=== PATIENT | male | born 1970 | race Caucasian/White ===

== ENCOUNTER → 2017-03-02 | Outpatient (CLI) | payer OTHER ==
[~2017-03-02] MED LIST: IOPAMIDOL (ISOVUE 370) 100 ML BTL IV ONE
== END ==
LOC: FIMAGING 15:47
PROVIDERS: ATTEND Internal Medicine Cardiovascular Disease
DX: Z09 Encounter for follow-up examination after completed treatment for conditions other than malignant neoplasm (principal); Z98.890 Other specified postprocedural states; I25.84 Coronary atherosclerosis due to calcified coronary lesion; K76.0 Fatty (change of) liver, not elsewhere classified
CPT/HCPCS: Q9967

== ENCOUNTER → 2018-02-09 | Outpatient (CLI) | payer OTHER | LOC: BMCIMAGING 10:22 | PROVIDERS: ATTEND Internal Medicine | DX: Z09 Encounter for follow-up examination after completed treatment for conditions other than malignant neoplasm (principal); R91.8 Other nonspecific abnormal finding of lung field; R06.2 Wheezing; Z95.4 Presence of other heart-valve replacement ==

== ENCOUNTER → 2018-02-16 | Outpatient (CLI) | payer OTHER | LOC: BMCIMAGING 09:08 | PROVIDERS: ATTEND Internal Medicine | DX: J98.4 Other disorders of lung (principal); Z95.1 Presence of aortocoronary bypass graft ==

== ENCOUNTER → 2018-04-07 | Outpatient (CLI) | payer OTHER | LOC: BMCIMAGING 16:37 | PROVIDERS: ATTEND Internal Medicine | DX: Z03.89 Encounter for observation for other suspected diseases and conditions ruled out (principal) ==